=== PATIENT | female | born 1975 | race Caucasian/White ===

== ENCOUNTER 2018-02-02 08:08 | Inpatient (IN) | payer BC ==
[2018-02-02] VITALS (11 sets, daily range): BP systolic 112–149; BP diastolic 57–83
[~2018-02-02] VITALS: Ht 180.3 cm; Wt 86.5 kg
[~2018-02-02 08:08] MED LIST: AMBIEN 5 MG TABL5 MG; CLEOCIN HCL150 MG PO; HYDROCODONE-AP1 EAC6 PO; IBUPROFEN 200200 M1; IBUPROFEN 600600 M1; IBUPROFEN 800800 M1 PO; PERCOCET PO; TUCKS MEDICATE1 EAC1; TYLENOL325 MG PO
[2018-02-02 08:32] LABS: ABSOLUTE NEUTROPHILS 13.5 thou/uL (1.4-8.2); BASOPHILS 0.3 % (0.0-2.0); EOSINOPHILS 0.5 % (0.0-3.0); HEMATOCRIT 44.3 % (37.0-47.0); HEMOGLOBIN 15.2 gm/dL (12.0-15.0); MCH 33.7 pg (26.0-34.0); MCHC 34.2 g/dL (28.0-37.0); MCV 98.5 fL (80.0-100.0); MONOCYTES 4.1 % (1.0-8.0); PLATELET COUNT 282 thou/uL (150-400); POLYS 85.1 % (36.0-66.0); RDW 13.3 % (10.5-14.5); WBC 15.9 thou/uL (4.0-11.0)
[2018-02-02 08:33] LABS: URINE BILIRUBIN NEGATIVE (Negative); URINE BLOOD NEGATIVE (Negative); URINE CLARITY CLEAR; URINE COLOR YELLOW; URINE GLUCOSE-RANDOM* NEGATIVE (Negative); URINE KETONES NEGATIVE (Negative); URINE LEUKOCYTES TRACE (Negative); URINE NITRITE NEGATIVE (Negative); URINE PROTEIN (DIPSTICK) NEGATIVE (Negative); URINE SPECIFIC GRAVITY >= 1.030 (1.005-1.035); URINE UROBILINOGEN 0.2 E.U./dl (0.2-1.0)
[2018-02-02 08:36] LABS: ANION GAP 6 mmol/L (7-16); BUN 7 mg/dL (7-18); CHLORIDE 104 mmol/L (98-107); CO2 25 mmol/L (21-32); CREATININE 0.7 mg/dL (0.6-1.0); GLUCOSE 146 mg/dL (74-106); POTASSIUM 3.5 mmol/L (3.5-5.1); SODIUM 135 mmol/L (136-145)
[2018-02-02 08:42] LABS: ALBUMIN 3.9 g/dL (3.4-5.0); DIRECT BILIRUBIN < 0.1 mg/dL (<0.1-0.3); SGOT 18 U/L (15-37); SGPT 35 U/L (30-65); TOTAL BILIRUBIN 0.3 mg/dL (<0.1-1.0); TOTAL PROTEIN 7.6 g/dL (6.4-8.2)
[2018-02-03 03:55] VITALS: BP 115/53
[2018-02-03] MEDS ORDERED: TRAMADOL 50 MG50 MG PO (07:57)
[2018-02-03] MEDS ORDERED: PERCOCET PO (07:57)
[2018-02-03 08:00] VITALS: BP 120/66
[2018-02-03 09:28] VITALS: BP 115/53
== END 2018-02-03 10:45 | disposition home or self-care (01) | DRG 419 ==
LOC: ER 08:08 → 4W 09:21 → EROBS 09:21 → 4W 10:00 → ENTRNSPT 02-03 10:37 → EDTRNSPTSTS 02-03 10:39 → 4W 02-03 10:45
PROVIDERS: Emergency Medicine
PROC: 0FT44ZZ Resection of Gallbladder, Percutaneous Endoscopic Approach (ICD-10-PCS; principal; 2018-02-02)
PROC: BF0C1ZZ Plain Radiography of Hepatobiliary System, All using Low Osmolar Contrast (ICD-10-PCS; principal; 2018-02-02)
DX: K80.00 Calculus of gallbladder with acute cholecystitis without obstruction (principal); D72.829 Elevated white blood cell count, unspecified; F17.210 Nicotine dependence, cigarettes, uncomplicated; Z79.899 Other long term (current) drug therapy
CPT/HCPCS: 10040; 50010; 50101; 50249; 50411; 50555; 50558; 50962; 51975; 52265; 53307; 53310; 54022; 54118; 55245; 55317; 56462; 56525; 56526; 62110; 62900; 70005